=== PATIENT | male | born 1945 | race Caucasian/White ===

== ENCOUNTER 2020-11-14 11:38 | Day surgery (SDC) | payer MEDICARE ==
[~2020-11-14] VITALS: Ht 177.8 cm; Wt 82.9 kg
[2020-11-14] VITALS (7 sets, daily range): BP systolic 117–165; BP diastolic 56–89; PULSE 56–69; TEMP 97.4–97.8
[~2020-11-14 11:38] MED LIST: ASPIRIN 32325 MG/TAB PO
[2020-11-14] MEDS ORDERED: ASPIRIN E.C. 8181 MG PO (12:19)
[2020-11-14] MEDS ORDERED: FLAXSEED OIL1000 MG PO (12:20)
[2020-11-14] MEDS ORDERED: LUTEIN20 M1 PO (12:20)
[2020-11-14] MEDS ORDERED: BIOFLEX PO (12:22)
[2020-11-14] MEDS ORDERED: ONE-A-DAY ESSE1 EACH PO (12:22)
[2020-11-14] MEDS ORDERED: NORCO 325 MG-51 TAB PO (18:31)
[2020-11-14] MEDS ORDERED: MOTRIN 600600 MG/TAB PO (18:32)
[2020-11-14] MEDS ORDERED: COLACE 100100 MG/CAP PO (18:32)
--- NOTE | 2020-11-14 19:15 | NUR ---
Pt. to the floor from PACU. Pt. is A&OX3, assessment complete. INT to lt. hand patent. Abd. lap sites x3, well approximated. Pt. denies pain or other needs. Call light within reach.
--- NOTE | 2020-11-14 21:00 | NUR ---
Pt. sitting up i bed at this time. Pt. has tolerated PO, ambulated and urinated. Pt. reports abd. pain at a 2 on pain scale. Pt. has met criteria to discharge. Reviewed discharge paperwork with the pt. Pt. voices understanding. INT discontinued from lt. hand. Pt. dressed and waiting for ride.
--- NOTE | 2020-11-14 21:32 | NUR ---
Pt.'s ride has arrived. Pt. escorted out by MEDICAL SUPPORT SPECIALIST.
== END 2020-11-14 21:33 | disposition home or self-care (01) ==
LOC: SDCO 11:38 → SURG 19:15 → SDCO 21:33
DX: K40.90 Unilateral inguinal hernia, without obstruction or gangrene, not specified as recurrent (principal); F17.220 Nicotine dependence, chewing tobacco, uncomplicated; Z79.82 Long term (current) use of aspirin; Z20.822 Contact with and (suspected) exposure to COVID-19
CPT/HCPCS: OP; C1781; J0360; J0690; J1100; J1885; J2405; J2704; J3010; J7120